=== PATIENT | female | born 1990 | race Caucasian/White ===

== ENCOUNTER 2017-06-06 10:48 | Emergency (ER) | payer OTHER ==
[2017-06-06 11:40] VITALS: BP 88/60
--- NOTE | 2017-06-06 11:41 | UC ---
Complaint Female HPI - HPI Summary HPI Summary: This is a 26 yo otherwise healthy female with a 7d h/o mild dysuria and frequency. She noted some hematuria on day 1 of symptoms. Symptoms seemed to improve on their own, but then came back again in the last 2d. She denies assoc vaginal symptoms such as discharge, odor or itching. No abd pain, n/v/d. No fevers or back pain. - History Of Current Complaint Chief Complaint: [facility] Stated Complaint: URINARY COMPLAINT Hx Last Menstrual Period: 2.5 years - Allergies/Home Medications Allergies/Adverse Reactions: Allergies Allergy/AdvReac Type Severity Reaction Status Date / Time med for uti Allergy Rash And Uncoded 06/06/17 11:09 Itching Home Medications: Home Medications Levonorgestrel (Iud) [Mirena IUD] 20 mcg IU DAILY 06/06/17 [History Confirmed ] PMH/Surg Hx/FS Hx/Imm Hx Previously Healthy: Yes - Surgical History Surgical History: None - Family History Known Family History: Positive: None - Social History Alcohol Use: Occasionally Substance Use Type: None Smoking Status (MU): Never Smoked Tobacco Review of Systems Constitutional: Negative Skin: Negative Eyes: Negative ENT: Negative Respiratory: Negative Cardiovascular: Negative Gastrointestinal: Negative Genitourinary: Dysuria Motor: Negative Neurovascular: Negative Musculoskeletal: Negative Neurological: Negative Psychological: Negative All Other Systems Reviewed And Are Negative: Yes Physical Exam Triage Information Reviewed: Yes Appearance: Well-Appearing Vital Signs: Initial Vital Signs Temp 98 F 06/06/17 10:53 Resp 18 06/06/17 10:53 BP 96/61 06/06/17 10:53 Vital Signs Reviewed: Yes Neck: Positive: Supple, Nontender, No Lymphadenopathy Respiratory: Positive: Chest non-tender, Lungs clear, Normal breath sounds. Negative: Crackles, Rhonchi, Stridor, Wheezing Cardiovascular: Positive: RRR, No Murmur Abdomen Description: Positive: Nontender, Soft. Negative: CVA Tenderness (R), CVA Tenderness (L) Bowel Sounds: Positive: Present Diagnostics - Laboratory Diagnostic Studies Completed/Ordered: UA - trace blood and 3+LE Complaint Female Dx - Course Course Of Treatment: This is an otherwise healthy 26 yo female with 7d h/o dysuria and frequency. UA suggestive of possible UTI. Hypotension noted, but she does not appear ill and asx. No intervention necessary. Empirically treat for uncomplicated UTI - Differential Dx/Diagnosis Differential Diagnosis/HQI/PQRI: Pelvic Inflammatory Disease, Sexually Transmitted Disease, Urinary Tract Infection Provider Diagnoses: 1. UTI - uncomplicated Discharge - Discharge Plan Condition: Stable Disposition: HOME Prescriptions: Nitrofurantoin Monohyd Macro [Macrobid] 100 mg PO BID #6 cap Patient Education Materials: Urinary Tract Infection in Women (ED) Referrals: Non Staff,Doctor [Primary Care Provider] - Additional Instructions: Instructions: 1. Please take antibiotics as directed 2. Follow up if symptoms persist despite antibiotic use
== END 2017-06-06 11:43 | disposition home or self-care (01) ==
LOC: UCCORT 10:48
DX: N39.0 Urinary tract infection, site not specified (principal)
CPT/HCPCS: 81003; 87086; 99202; G0463